=== PATIENT | female | born 1990 | race Caucasian/White ===

== ENCOUNTER 2025-04-25 16:14 | Emergency (ER) | payer BC ==
[~2025-04-25] VITALS: Ht 165.1 cm; Wt 77.0 kg
[2025-04-25 16:34] VITALS: O2SAT 100
[2025-04-25 17:29] LABS: CLARITY URINE CLEAR (CLEAR); COLOR URINE YELLOW (YELLOW); GLUCOSE URINE NEGATIVE (NEGATIVE); KETONES URINE 2+ (NEGATIVE); LEUKOCYTE ESTERASE URINE TRACE (NEGATIVE); NITRITE URINE NEGATIVE (NEGATIVE); OCCULT BLOOD URINE 3+ (NEGATIVE); PH URINE 6.5 (4.5-8.0); PROTEIN URINE NEGATIVE (NEGATIVE); SPECIFIC GRAVITY URINE 1.015 (1.005-1.030); UROBILINOGEN URINE 1.0 E.U./dL (0.2-1.0)
[2025-04-25 17:43] LABS: BACTERIA URINE TRACE; SQUAMOUS EPITHELIAL CELL URINE FEW /lpf (RARE/1+); WBC URINE 0-2 /hpf (0-2)
[2025-04-25 18:00] LABS: BASOPHILS % 0.3 % (0.0-2.0); EOSINOPHILS % 0.3 % (0.0-5.0); HEMATOCRIT. 38.4 % (36.0-48.0); HEMOGLOBIN. 13.3 g/dL (12.0-16.0); LYMPHOCYTES % 19.8 % (20.0-50.0); MEAN PLATELET VOLUME 7.0 fl (7.4-10.4); MONOCYTES % 5.8 % (2.0-8.0); NEUTROPHILS % 73.8 % (40.0-76.0); PLATELET 300 x1000/uL (130-400); RED BLOOD CELL COUNT 4.21 mill/uL (4.2-5.4); RED CELL DISTRIBUTION WIDTH 13.5 % (11.6-14.6)
[2025-04-25 18:18] LABS: HCG SCREEN NEGATIVE
[2025-04-25 18:36] LABS: CREATININE 0.7 mg/dL (0.6-1.0); UREA NITROGEN BLOOD 9 mg/dL (9-23)
[2025-04-25 18:38] LABS: ASPARTATE AMINOTRANSFERASE 16 IU/L (<34); BILIRUBIN DIRECT 0.5 mg/dL (<=3.0); BILIRUBIN TOTAL 1.5 mg/dL (0.1-1.0); PROTEIN TOTAL 7.2 g/dL (6.0-8.3)
[2025-04-25] MEDS: SODIUM CHLORIDE 0.9% 1,000 ML IV ONE (20:03)
[2025-04-25] MEDS: FAMOTIDINE 20MG/2ML VIAL IV ONE (20:04)
[2025-04-25] MEDS: MAGNESIUM/ALUMINUM HYDROXIDE/SIMETHICONE 30ML UDC PO ONE (20:04)
[2025-04-25] MEDS: ONDANSETRON HCL 4MG/2ML INJ IV ONE (20:04)
[2025-04-25] MEDS: VISCOUS LIDOCAINE 2% 15 ML UDC MM ONE (20:04)
[2025-04-25] MEDS: ACETAMINOPHEN 500MG TABLET PO ONE (20:05)
[2025-04-25] MEDS ORDERED: PROT40 MT (21:55)
[2025-04-25 22:01] VITALS: BP 117/79; PULSE 64; RESP 12; TEMP 37; O2SAT 99
== END 2025-04-25 22:10 | disposition home or self-care (01) ==
LOC: ER 16:14 → CMPBEDREQ 04-26 07:18
DX: K21.9 Gastro-esophageal reflux disease without esophagitis (principal); Z90.89 Acquired absence of other organs
CPT/HCPCS: 80076; 80048; 81003; 81025; 84703; 83690; 85025; 36415; 74176; 96374; 96375; 99285; J1308; J2405; J7030; Z7610